=== PATIENT | female | born 1975 | race Caucasian/White ===

== ENCOUNTER 2020-09-16 19:34 | Emergency (ER) | payer OTHER | END 2020-09-16 23:15 | disposition home or self-care (01) | LOC: ED 19:34 | DX: S46.912A Strain of unspecified muscle, fascia and tendon at shoulder and upper arm level, left arm, initial encounter (principal); S60.221A Contusion of right hand, initial encounter; S20.219A Contusion of unspecified front wall of thorax, initial encounter; V59.9XXA Occupant (driver) (passenger) of pick-up truck or van injured in unspecified traffic accident, initial encounter; Y93.89 Activity, other specified; Y92.89 Other specified places as the place of occurrence of the external cause; Y99.8 Other external cause status ==